=== PATIENT | male | born 1980 | race Caucasian/White ===

== ENCOUNTER 2021-06-17 11:30 | Emergency (ER) | payer BC, SELFPAY ==
--- NOTE | ~2021-06-17 | XR_ITS ---
XR knee RT 3V 06/17/2021 11:50 INDICATION: Right knee pain PROCEDURE: 3 views right knee COMPARISON: No prior studies for comparison. FINDINGS: Fracture, dislocation or subluxation is not identified. The soft tissues appear within norm al limits. No foreign bodies are identified. IMPRESSION: 1: NO ACUTE BONE OR JOINT ABNORMALITY IDENTIFIED. Reviewed, dictated and finalized at location A. R BUILDER
--- NOTE | 2021-06-17 11:44 | ED.LOWEXIN ---
HPI - Extremity Injury (Lower) General Chief Complaint: Extremity Injury, Lower Stated Complaint: R knee pain Time Seen by Provider: 06/17/21 11:45 Source: patient Mode of arrival: ambulatory Limitations: no limitations History of Present Illness HPI Narrative: 40-year-old male presented for complaint of right lateral knee pain worsening over the past week. He states that the onset he was playing with his daughter he was seated and she fell on his knee. Unsure of the mechanism of injury otherwise. Continues to report pain, states it is getting worse. Pain is not relieved with rest. He is able to ambulate without an assistive device. He has taken ibuprofen, used pain cream and heating pad with minimal relief. Denies numbness, tingling, weakness of the lower extremity. He states he is scheduled with his primary care provider tomorrow for evaluation. Related Data Allergies Allergy/AdvReac Type Severity Reaction Status Date / Time No Known Allergies Allergy Verified 06/17/21 11:41 Review of Systems Review of Systems: CONSTITUTIONAL: Denies , fever, chills EYES: Denies visual changes ENT: Denies rhinorrhea, congestion CARDIOVASCULAR: Denies chest pain, palpitations, or edema. RESPIRATORY: Denies cough or dyspnea. GASTROINTESTINAL: Denies abdominal pain, nausea, vomiting, or diarrhea. SKIN: Denies rash, itching, or wounds. MUSCULOSKELETAL: Endorses right lateral knee pain NEUROLOGIC: Denies headache, numbness, tingling, or weakness. PSYCH: Denies depression or anxiety. All systems reviewed & are unremarkable except as noted in HPI and below PMFSH Comments At time of signature, I have reviewed and agree with nursing past medical, surgical, social and family history unless otherwise noted. Please see nursing chart for further information. There is no relevant family history pertinent to the presenting complaint Exam Narrative: GENERAL: Well-appearing, well-nourished, and in no acute distress. HEAD: Normocephalic, atraumatic. EYES: PERRLA, conjunctivae clear NECK: Supple. CHEST: Speaks in full sentences. No respiratory distress. HEART: Regular rate and rhythm. Normal and equal peripheral pulses. EXTREMITIES: Right lateral knee with full range of motion, tender with light palpation to the lateral/distal knee, patient is able to flex and extend difficulty, endorses increased pain with medial rotation. No apparent edema or ecchymosis. No open wounds, no skin tenting, no devitalized tissue or atrophy, no trophic changes, no obvious deformity; alignment normal, nearby joints and structures intact. Distal pulses palpable and equal bilaterally, skin warm, dry, pink. Capillary refill less than 3 seconds. SKIN: Warm, dry, no rash. NEURO: Alert and oriented x3. PSYCH: Normal mood and affect Course Course Emergency Course: xray unremarkable Patient is aware of diagnosis, understands and agrees to treatment plan. Anticipatory guidance given. Patient agrees to follow-up as directed and is aware of reasons to seek care at the emergency department. Portions of this record may have been created with voice recognition software Level of Care: Express Care Visit Vital Signs Vital signs: Vital Signs Temperature 98.6 F 06/17/21 11:50 Pulse Rate 94 06/17/21 11:50 Respiratory Rate 16 06/17/21 11:50 Blood Pressure 178/101 H 06/17/21 11:50 Pulse Oximetry 99 06/17/21 11:50 Temperature 98.6 F 06/17/21 11:50 Pulse Rate 94 06/17/21 11:50 Respiratory Rate 16 06/17/21 11:50 Blood Pressure 178/101 H 06/17/21 11:50 Pulse Oximetry 99 06/17/21 11:50 Reviewed MDM - Extremity Injury (Lower) MDM Narrative Medical decision making narrative: Patellar dislocation, patella fracture, quadricep tendon rupture, gout, patellar tendinitis, bursitis, Ang's cyst, DVT Imaging Data Attestation: I personally reviewed and interpreted this imaging study as follows: My impression: NO ACUTE BONE OR JOINT ABNORMALITY IDENTIFIED.
[2021-06-17 11:50] VITALS: BP 178/101; PULSE 94; RESP 16; TEMP 37; O2SAT 99
== END 2021-06-17 12:41 | disposition home or self-care (01) ==
PROVIDERS: Emergency Provider Nurse Practitioner Family; PCP Nurse Practitioner Family
DX: M25.561 Pain in right knee (principal)
CPT/HCPCS: 73562; 99213; G0463

== ENCOUNTER 2022-07-01 15:37 | Observation (INO) | payer OTHER, MEDICAID, SELFPAY ==
--- NOTE | ~2022-07-01 | CT_ITS ---
EXAMINATION: CT abdomen pelvis wo con DATE: 07/01/2022 18:33 INDICATION: Left flank pain. TECHNIQUE: Computed tomography (CT) of the abdomen and pelvis was performed without intravenous contr ast. Automated exposure control and iterative reconstruction technique were employed. The dose-length product was 1482.56 mGy-cm. COMPARISON: None. FINDINGS: The visualized portions of the lung bases demonstrated mild atelectasis. No pleural effusio n. The heart size is normal. No pericardial effusion. There is diffuse hepatic steatosis. There is a gallstone in the gallbladder, which is normal in size. The spleen, pancreas, adrenal glands, and righ t kidney are normal. There is mild left hydronephrosis and hydroureter to the level of a 4 mm stone i n distal left ureter. There is diverticulosis of the colon without evidence of diverticulitis. The ap pendix is normal. There are no pathologically enlarged lymph nodes. There is an umbilical hernia cont aining fat. There is no free intraperitoneal fluid. There is mild thoracic and lumbar spondylosis. IMPRESSION: 1. 4 mm stone in distal left ureter with mild left hydronephrosis and hydroureter. Reviewed, dictated and finalized at location A. MATION QTP TESTER IMPRESSION: 1. 4 mm stone in distal left ureter with mild left hydronephrosis and hydrouret er.
--- NOTE | ~2022-07-01 | XR_ITS ---
EXAMINATION: XR abdomen/kub 1V DATE: 07/01/2022 19:48 INDICATION: Nephrolithiasis. TECHNIQUE: A supine view of the abdomen on 2 radiographs was obtained. COMPARISON: CT abdomen and pelvis 07/01/22 FINDINGS: There are no dilated loops of bowel. There is a 4 mm stone in distal left ureter overlying the sacrum. IMPRESSION: 1. 4 mm stone in distal left ureter. Reviewed, dictated and finalized at location A. LL ASSEMBLER
--- NOTE | ~2022-07-01 | XR_ITS ---
EXAMINATION: XR retrograde pyelo w/stent LT DATE: 07/02/2022 08:49 INDICATION: Left internal ureteral stent placement TECHNIQUE: Fluoroscopic images from a left stent placement are submitted for review. 21 seconds of fl uoroscopy time. FINDINGS: There is a left double-J internal ureteral stent projecting in expected position, with proximal [place] loop at the level of the renal pelvis and distal loop in the pelvis within the bladder lumen. IMPRESSION: 1. Left internal ureteral stent placement. Please refer to real-time procedural findings for detail s. Reviewed, dictated and finalized at location L. ORCHARDIST IMPRESSION: 1. Left internal ureteral stent placement. Please refer to real-time procedur al findings for details.
[2022-07-01 16:28] VITALS: BP 174/111; PULSE 92; RESP 16; TEMP 36.8; O2SAT 99
[2022-07-01 16:44] LABS: Basophils Absolute Auto 0.1 K/mm3 (0.0-0.1); Basophils Percent Auto 0.4 % (0.2-1.2); Eosinophils Absolute Auto 0.1 K/mm3 (0-0.3); Eosinophils Percent Auto 0.8 % (0-4.4); Hematocrit 46.4 % (42.0-52.0); Hemoglobin 16.4 g/dL (14.0-18.0); Immature Granulocyte Absolute 0.06 K/mm3 (0.00-0.031); Immature Granulocyte Percent A 0.4 % (0-0.5); Lymphocytes Percent Auto 19.4 % (18.3-44.2); Mean Corpuscular HGB Conc 35.3 g/dl (32-36); Mean Corpuscular Volume 84.8 fl (80-100); Mean Platelet Volume 8.3 fl (7.4-10.4); Monocytes Absolute Auto 1.2 K/mm3 (0.1-0.6); Monocytes Percent Auto 7.8 % (2.6-8.5); Neutrophils Percent Auto 71.2 % (45.5-73.1); Platelet Count Result 333 k/mm3 (150-375); Red Blood Count 5.47 M/mm3 (4.6-6.20); Red Cell Distribution Width 13.6 % (11.5-14.5); White Blood Count 15.4 K/mm3 (4.5-10.0)
[2022-07-01 17:02] LABS: Alanine Aminotransferase 59 U/L (6-50); Albumin Level 4.3 g/dL (3.5-5.1); Alkaline Phosphatase 91 U/L (38-126); Anion Gap 7 mmol/L (8-16); Aspartate Amino Transferase 45 U/L (17-59); Bilirubin,Total 0.9 mg/dL (0.2-1.3); Blood Urea Nitrogen 12 mg/dL (9-20); Carbon Dioxide 28 mmol/L (22-30); Chloride 104 mmol/L (98-107); Estimated Glomerular Filt Rate > 60; Glucose 135 mg/dL (65-110); Potassium 3.6 mmol/L (3.4-5.0); Sodium 139 mmol/L (137-145)
[2022-07-01 17:24] LABS: Appearance Urine Slightly Cloudy (Clear); Bilirubin Urine 1+ (Negative); Blood Urine 3+ (Negative); Color Urine Yellow (Yellow); Glucose Urine UA Negative (Negative); Ketones Urine Trace mg/dL (Negative); Leukocyte Esterase Ur Negative LEU/UL (Negative); Nitrate Urine Negative (Negative); Protein Urine 2+ mg/dL (Negative); Specific Grav Ur >= 1.030 (1.001-1.035); Urobilinogen Urine 0.2 mg/dL (<2.0); pH Urine 5.5 (5.0-9.0)
[2022-07-01 17:30] LABS: Add Urine Microscopic? YES; Calcium Oxalate Crystals Urine Many /hpf; Mucus Urine Rare /lpf; RBC Urine >75 /hpf (0-2); WBC Urine 0-3 /hpf
[2022-07-01] MEDS: SODIUM CHLORIDE 0.9% IV 1,000 ML 999 ML IV CONT (18:40)
[2022-07-01] MEDS: ONDANSETRON INJ 4 MG/2 ML VIAL IV PUSH ×2 (18:40→19:39)
[2022-07-01] MEDS: MORPHINE SULFATE (*CRX) 4 MG/ML INJ IV PUSH ×2 (18:41→22:48)
--- NOTE | 2022-07-01 19:13 | ED.ABDPAIN ---
HPI - Abdominal Pain General Chief Complaint: Abdominal Pain Stated Complaint: kidney stone, pain, nausea, blood in urine Time Seen by Provider: 07/01/22 18:58 History of Present Illness HPI narrative: 41-year-old male with a history of nephrolithiasis multiple times reports for left flank pain and hematuria for 1 month, worsening over the past 2 days. Patient reports constant nausea and multiple episodes of vomiting, 4-5 times per day for the past 2 days. He states this is exactly how he feels when he gets kidney stones. He sees Dr. Manuel for urology and [place]. States when he gets kidney stones are usually 6 to 8 mm in size and he usually has to get a stent placed to pass them. Denies fever, body aches, chills, abdominal pain, dysuria. He reports urinary urgency, but states every time he tries to go there is only a few drops. Related Data Home Medications Medication Instructions Recorded Confirmed cholecalciferol (vitamin D3) 25 25 mcg PO DAILY 09/12/21 mcg (1,000 unit) capsule lisinopril 40 mg tablet 40 mg PO DAILY 09/12/21 tadalafil 5 mg tablet 5 mg PO DAILY 09/12/21 Allergies Allergy/AdvReac Type Severity Reaction Status Date / Time amoxicillin Allergy Unknown Unknown Verified 07/01/22 18:56 Review of Systems Review of Systems: CONSTITUTIONAL: Denies fever, chills EYES: Denies visual changes, redness, or discharge. ENT: Denies rhinorrhea, congestion, sore throat, or otalgia. CARDIOVASCULAR: Denies chest pain, palpitations, or edema. RESPIRATORY: Denies cough or dyspnea. GASTROINTESTINAL: See HPI GENITOURINARY: See HPI. SKIN: Denies rash or itching. MUSCULOSKELETAL: Denies joint pain, or myalgia. NEUROLOGIC: Denies headache, numbness, dizziness, or weakness. PSYCHIATRIC: Denies anxiety or depression. [facility] Social History Social History Smoking status: Current every day smoker Tobacco type: cigarettes Alcohol intake: never Substance use: never Exam Narrative: GENERAL: Well-appearing, well-nourished, and in no acute distress. HEAD: Normocephalic, atraumatic. EYES: PERRLA and EOMI. ENT: Nares clear, no rhinorrhea or epistaxis. Mucous membranes moist. Oropharynx without tonsillar hypertrophy exudate or other lesions. NECK: Supple. No adenopathy or masses. CHEST: Clear to auscultation. No respiratory distress. No wheezes rales or rhonchi HEART: Regular rate and rhythm. No murmur heard. Normal peripheral pulses. ABDOMEN: Soft, nontender, nondistended, normal active bowel sounds. No CVA tenderness. EXTREMITIES: Normal range of motion. No edema. SKIN: Warm, dry, no rash. NEURO: No focal deficits. Alert and oriented x3. PSYCH: Normal mood and affect. Course Course Emergency Course: 1914: Patient vomited in the ED after receiving 4 mg of morphine about 30 minutes ago Spoke with Dr. Gibbons who is agreeable to admission and will plan to consult the patient in the morning. Advised me to obtain a KUB and give toradol for pain Vital Signs Vital signs: Vital Signs Temperature 98.3 F 07/01/22 16:28 Pulse Rate 92 07/01/22 16:28 Respiratory Rate 16 07/01/22 16:28 Blood Pressure 174/111 H 07/01/22 16:28 Pulse Oximetry 99 07/01/22 16:28 Oxygen Delivery Room Air 07/01/22 16:28 Temperature 98.3 F 07/01/22 16:28 Pulse Rate 92 07/01/22 16:28 Respiratory Rate 16 07/01/22 16:28 Blood Pressure 174/111 H 07/01/22 16:28 Pulse Oximetry 99 07/01/22 16:28 Oxygen Delivery Room Air 07/01/22 16:28 MDM - Abdominal Pain MDM Narrative Medical decision making narrative: 41-year-old male with a history of multiple kidney stones reports to the ED today with left flank pain, nausea, vomiting, urinary urgency with little output. Patient is followed by urologist Dr. Manuel and [place] who has performed multiple stents for this patient's kidney stones. Patient reports his stones usually measure betw
[2022-07-01] MEDS: KETOROLAC 30 MG/ML VIAL (*BKC) IV PUSH (19:40)
--- NOTE | 2022-07-01 20:15 | PM.IMHP ---
H&P: HPI History of Present Illness Date/Time: 07/01/22 20:15 Chief Complaint: Left flank pain. Narrative: This is a 41-year-old male smoker with history of kidney stones and hypertension who presented to the emergency department from home for evaluation of left flank pain. Patient provides the following history. He reports intermittent episodes of hematuria and left flank pain for upwards of a month though symptoms have been worse over the past 2 days. He describes a sharp and shooting colicky pain in the left flank radiating somewhat to the left lower quadrant. Associated symptoms include nausea and vomiting for the past 24 hours or so. He has been taking 2 Aleve a day without a whole lot of benefit recently. He denies fever, chills, and sweats. He was afebrile on arrival to the emergency department. CT showed a 4 mm stone in the distal left ureter with mild left hydronephrosis and hydroureter. Labs were significant for a WBC of 15.4 and creatinine 1.10. Urine had 3+ blood. Patient reports that he has never been able to pass a kidney stone on his own and he is being admitted in this setting for pain control and urology consultation. Review of Systems Review of Systems: Twelve systems were reviewed. No recent cold or flu symptoms. No sick contacts. He has had issues with intermittent diarrhea and constipation. He has occasional epigastric discomfort and belching. Patient notes that he typically takes 2 Aleve a day and has done so for years. He has no history of esophagitis, gastritis, or ulcer. No melena or hematochezia. Except as documented, all other systems were reviewed and are negative. [facility] Past Medical History Medical History (Updated 07/01/22 @ 23:30 by Qiana Kaur PA-C) Hypertension Kidney stones Tobacco dependence Surgical History Surgical History (Updated 07/01/22 @ 23:28 by Qiana Kaur PA-C) History of cystoscopy History of ureter stent History of vasectomy Family History Family History (Updated 07/01/22 @ 23:28 by Qiana Kaur PA-C) Other Hypertension Social History Social History (Updated 07/01/22 @ 23:28 by Qiana Kaur PA-C) Social History: Surrogate medical decision maker: Nemo Spence, mother. Code status: Full code. 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 Substance use: never Substance use type: does not use Lack of Transportation: No Lack of Food: Never True Current Housing: I Have Housing Concerned About Future Housing: No Difficulty Paying Gas/Electric Bills: No Difficulty Paying for Meds: No Currently Unemployed: No Education: Associate Degree Difficulty w/ Childcare or Family Care: No Spiritual care concerns: No Meds Home Medications and Allergies Home Medications Medication Instructions Recorded Confirmed Type ibuprofen 800 mg tablet 800 mg PO TID PRN pain #15 tabs 06/17/21 07/01/22 Rx cholecalciferol (vitamin D3) 25 25 mcg PO WEEKLY 09/12/21 07/01/22 History mcg (1,000 unit) capsule lisinopril 40 mg tablet 40 mg PO DAILY 09/12/21 07/01/22 History Allergies Allergy/AdvReac Type Severity Reaction Status Date / Time amoxicillin Allergy Unknown Unknown Verified 07/01/22 18:56 Vital Signs Vital Signs - 24 hr 07/01/22 16:28 Temperature 98.3 F Pulse Rate 92 Respiratory Rate 16 Blood Pressure 174/111 H Pulse Oximetry 99 Oxygen Delivery Room Air Exam Narrative: General: Mildly ill-appearing male in the semi-Torrez position in bed. Weight: 122 kg. BMI: 39.7. HEENT: PERRL, EOMI. Sclera anicteric. Tacky mucous membranes. Neck: Supple. Respiratory: Lungs are clear to auscultation bilaterally. Cardiovascular: Regular rate an
[2022-07-01 22:12] VITALS: BP 160/98; PULSE 89; RESP 17; O2SAT 98
[2022-07-01 22:25] VITALS: BP 172/108; PULSE 90; RESP 18; TEMP 36.8; O2SAT 97
[2022-07-01 23:00] VITALS: BMI 39.6
[2022-07-02] VITALS (10 sets, daily range): BP systolic 103–155; BP diastolic 64–97; PULSE 61–82; RESP 10–20; TEMP 35.9–36.7; O2SAT 95–100
[2022-07-02] MEDS: NICOTINE (*PBKC) 21 MG PATCH 1 PATCH TRANSDERM (00:24)
[2022-07-02] MEDS: SODIUM CHLORIDE 0.9% IV 1,000 ML 125 ML IV CONT ×2 (00:24→11:00)
[2022-07-02] MEDS: lisinopriL 20 MG TABLET PO (00:25)
[2022-07-02] MEDS: TAMSULOSIN HCL 0.4 MG CAPSULE PO (00:25)
[2022-07-02] MEDS: KETOROLAC 30 MG/ML VIAL (*BKC) IV PUSH (05:00)
[2022-07-02] MEDS: MORPHINE SULFATE (*CRX) 4 MG/ML INJ IV PUSH (06:09)
[2022-07-02 06:40] LABS: Hematocrit 41.8 % (42.0-52.0); Hemoglobin 14.5 g/dL (14.0-18.0); Mean Corpuscular HGB Conc 34.7 g/dl (32-36); Mean Corpuscular Hemoglobin 29.8 pg (26-34); Mean Corpuscular Volume 85.8 fl (80-100); Mean Platelet Volume 8.3 fl (7.4-10.4); Platelet Count Result 282 k/mm3 (150-375); Red Blood Count 4.87 M/mm3 (4.6-6.20); Red Cell Distribution Width 13.7 % (11.5-14.5); White Blood Count 12.1 K/mm3 (4.5-10.0)
[2022-07-02 06:55] LABS: Anion Gap 6 mmol/L (8-16); Blood Urea Nitrogen 15 mg/dL (9-20); Calcium 8.2 mg/dL (8.4-10.2); Carbon Dioxide 27 mmol/L (22-30); Chloride 107 mmol/L (98-107); Estimated CRCL calculation 113 ml/min; Estimated Glomerular Filt Rate > 60; Glucose 102 mg/dL (65-110); Magnesium 1.8 mg/dL (1.6-2.3); Potassium 3.5 mmol/L (3.4-5.0); Sodium 140 mmol/L (137-145)
[2022-07-02] MEDS: LACTATED RINGERS 1,000 ML 30 ML IV CONT (07:45)
--- NOTE | 2022-07-02 07:59 | WPDURCON ---
Assessment and Plan Assessment and plan (1) Left ureteral stone: Code(s): N20.1 - Calculus of ureter Status: Acute Assessment and Plan: Proceed with cystoscopy, left retrograde pyelogram, left ureteroscopy with stone extraction, possible laser, stent placement Urology Consult Note HPI Date Seen: 07/02/22 Requesting Physician: Steph James PA-C Primary Care Provider: REVENUE RESEARCH ANALYST PHYSICIAN Consult Narrative Reason for consult: Obstructing left distal ureteral calculus with colic Narrative: Néstor Spence is a 41 year old male who was admitted with an obstructing 4 mm distal stone. Pain was difficult to be controlled. Patient does have a history of stones requiring intervention in the past. Patient denies any fevers. Urinalysis has no evidence of leukocytes or nitrates at this time. Review of Systems Review of Systems: All systems reviewed & are unremarkable except as noted in HPI and below PMFSH Past Medical History Medical History Hypertension Kidney stones Tobacco dependence Surgical History Surgical History History of cystoscopy History of ureter stent History of vasectomy Family History Family History Other Hypertension Social History Social History Social History: Surrogate medical decision maker: Nemo Spence, mother. Code status: Full code. 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 Substance use: never Substance use type: does not use Lack of Transportation: No Lack of Food: Never True Current Housing: I Have Housing Concerned About Future Housing: No Difficulty Paying Gas/Electric Bills: No Difficulty Paying for Meds: No Currently Unemployed: No Education: Associate Degree Difficulty w/ Childcare or Family Care: No Spiritual care concerns: No Meds Home Medications and Allergies Home Medications Medication Instructions Recorded Confirmed Type ibuprofen 800 mg tablet 800 mg PO TID PRN pain #15 tabs 06/17/21 07/01/22 Rx cholecalciferol (vitamin D3) 25 25 mcg PO WEEKLY 09/12/21 07/01/22 History mcg (1,000 unit) capsule lisinopril 40 mg tablet 40 mg PO DAILY 09/12/21 07/01/22 History Allergies Allergy/AdvReac Type Severity Reaction Status Date / Time amoxicillin Allergy Unknown Unknown Verified 07/01/22 18:56 Vital Signs Vital Signs - 24 hr 07/01/22 16:28 07/01/22 22:12 07/01/22 22:25 Temperature 36.8 C 36.8 C Pulse Rate 92 89 90 Respiratory Rate 16 17 18 Blood Pressure 174/111 H 160/98 H 172/108 H Pulse Oximetry 99 98 97 Oxygen Delivery Room Air 07/02/22 06:00 Temperature 36.0 C L Pulse Rate 78 Respiratory Rate 18 Blood Pressure 142/97 H Pulse Oximetry 97 Oxygen Delivery Exam Const: General: cooperative Resp: Effort & Inspection: normal respiratory effort Cardio: Rate: regular rate Rhythm: regular rhythm GI: Inspection: normal to inspection GI Palp: Yes Soft to palpation Results Labs 07/02/22 06:31 07/02/22 06:32 Labs: Short CBC 07/01/22 07/02/22 Range/Units 16:36 06:31 WBC 15.4 H 12.1 H (4.5-10.0) K/mm3 Hgb 16.4 14.5 (14.0-18.0) g/dL Hct 46.4 41.8 L (42.0-52.0) % Plt Count 333 282 (150-375) k/mm3 [facility] 07/01/22 07/02/22 16:36 06:32 Sodium 139 140 Potassium 3.6 3.5 Chloride 104 107 Carbon Dioxide 28 27 BUN 12 15 Creatinine 1.10 1.00 Glucose 135 H 102 Calcium 9.0 8.2 L Liver Function 07/01/22 R
--- NOTE | 2022-07-02 08:01 | WPDHPUPDATE1 ---
History and Physical Update Update Date/Time: 07/02/22 08:01 History and Physical has been reviewed, including an updated exam of the patient. There are NO changes in the patient's condition. Risks, benefits, and alternatives have been discussed and questions answered. Patient agrees to proceed with procedure.
--- NOTE | 2022-07-02 08:06 | WPDANESEPPF ---
Anes - Initial Pre Proc Eval Procedure: Operation Date: 07/02/22 09:30 Proposed Procedures p Cystoscopy,Left Ureteroscopy,Left Retrograde Pyelogram,Left Stone Extraction,Possible Holmium Laser,Possible Stent Placement - Vijay Gibbons MD Date/Time: 07/02/22 08:06 Surgeon: Steph James PA-C Pre Op Diagnosis: nephtolithiasis Patient Data Age: 41 Gender: M Height: 1.75 m Weight: 122.2 kg Last Vital Signs Temp 36.0 C L 07/02/22 06:00 Pulse 78 07/02/22 06:00 Resp 18 07/02/22 06:00 BP 142/97 H 07/02/22 06:00 Pulse Ox 97 07/02/22 06:00 O2 Del Method Room Air 07/01/22 16:28 Allergies Allergy/AdvReac Type Severity Reaction Status Date / Time amoxicillin Allergy Unknown Unknown Verified 07/01/22 18:56 Home Medications Medication Instructions Recorded Confirmed Type ibuprofen 800 mg tablet 800 mg PO TID PRN pain #15 tabs 06/17/21 07/01/22 Rx cholecalciferol (vitamin D3) 25 25 mcg PO WEEKLY 09/12/21 07/01/22 History mcg (1,000 unit) capsule lisinopril 40 mg tablet 40 mg PO DAILY 09/12/21 07/01/22 History Laboratory Tests 07/01/22 07/01/22 07/01/22 16:36 16:36 16:49 WBC 15.4 K/mm3 H K/mm3 (4.5-10.0) RBC 5.47 M/mm3 M/mm3 (4.6-6.20) Hgb 16.4 g/dL g/dL (14.0-18.0) Hct 46.4 % % (42.0-52.0) MCV 84.8 fl fl (80-100) MCH 30.0 pg pg (26-34) MCHC 35.3 g/dl g/dl (32-36) RDW 13.6 % % (11.5-14.5) Plt Count 333 k/mm3 k/mm3 (150-375) MPV 8.3 fl fl (7.4-10.4) Immature Gran % (Auto) 0.4 % % (0-0.5) Neut % (Auto) 71.2 % % (45.5-73.1) Lymph % (Auto) 19.4 % % (18.3-44.2) [place] % (Auto) 7.8 % % (2.6-8.5) Eos % (Auto) 0.8 % % (0-4.4) Baso % (Auto) 0.4 % % (0.2-1.2) Lymph # (Auto) 3.00 K/mm3 K/mm3 (0.9-3.2) [place] # (Auto) 1.2 K/mm3 H K/mm3 (0.1-0.6) Eos # (Auto) 0.1 K/mm3 K/mm3 (0-0.3) Baso # (Auto) 0.1 K/mm3 K/mm3 (0.0-0.1) Abs Immat Gran (auto) 0.06 K/mm3 H K/mm3 (0.00-0.031) Absolute Neuts (auto) 11.0 K/mm3 H K/mm3 (1.3-6.7) Absolute Nucleated RBC 0.0 K/mm3 K/mm3 (0.0-0.012) Nucleated RBC % 0.0 % % (0.0-0.2) Sodium 139 mmol/L mmol/L (137-145) Potassium 3.6 mmol/L mmol/L (3.4-5.0) Chloride 104 mmol/L mmol/L (98-107) Carbon Dioxide 28 mmol/L mmol/L (22-30) Anion Gap 7 mmol/L L mmol/L (8-16) BUN 12 mg/dL mg/dL (9-20) Creatinine 1.10 mg/dL mg/dL (0.7-1.3) Estim Creat Clear Calc Not Reportable Estimated GFR > 60 (59 - ) Glucose 135 mg/dL H mg/dL (65-110) Calcium 9.0 mg/dL mg/dL (8.4-10.2) Magnesium Total Bilirubin 0.9 mg/dL mg/dL (0.2-1.3) AST 45 U/L U/L (17-59) ALT 59 U/L H U/L (6-50) Alkaline Phosphatase 91 U/L U/L (38-126) Total Protein 7.0 g/dL g/dL (6.3-8.2) Albumin 4.3 g/dL g/dL (3.5-5.1) Urine Color Yellow (Yellow) Urine Appearance Slightly cloudy (Clear) Urine pH 5.5 (5.0-9.0) Ur Specific [place] >= 1.030 (1.001-1.035) Urine Protein 2+ mg/dL H mg/dL (Negative) Urine Glucose (UA) Negative mg/dL mg/dL (Negative) Urine Ketones Trace mg/dL mg/dL (Negative) Ur Blood (Man) 3+ H (Negative) Urine Nitrate Negative (Negative) Urine Bilirubin 1+ H (Negative) Urine Urobilinogen 0.2 mg/dL mg/dL (<2.0) Leukocyte Esterase Rfl Negative YOSELIN/UL YOSELIN/UL (Negative) Urine RBC >75 /hpf H /hpf (0-2) Urine WBC 0-3 /hpf /hpf Calcium Oxalate Crystal Many /hpf /hpf (None) Urine Mucus Rare /lpf /lpf 07/02/22 07/02/22 06:
[2022-07-02] MEDS: ceFAZolin 3 GM/D5W 100 ML 100 ML IVPB (08:30)
[2022-07-02] MEDS: LIDOCAINE HCL 2% GEL UROJET 10 ML PKG MUCOUS MEM (08:42)
--- NOTE | 2022-07-02 08:46 | W.PM.PROC2 ---
Procedure Note - Detailed Date of Procedure 07/02/22 Pre-op Diagnosis Left ureteral calculus Post-op Diagnosis Same Procedure Performed Cysto, left retrograde pyelogram, left ureteroscopy with stone extraction, left ureteral stent placement 4.8 Indonesian contour Surgeon Vijay Gibbons MD Anesthesia General Description of Procedure Patient is taken the operative suite correctly identified. Once anesthesia was obtained was placed in dorsal lithotomy position and prepped and draped usual sterile fashion. Twenty-two Indonesian scope was inserted the bladder. There were no tumors noted. Left ureteral orifice was cannulated with a guidewire. We dilated with an 8/10 dilator. Rigid ureteral scope was inserted the stone was visualized. Using an escape basket was retrieved in its entirety and sent for analysis. Reinspection of the ureter revealed no residual stones. Pyelogram was then performed to confirm placement the stent. No filling defects noted. 4.8 Indonesian contour stent was then placed with the proximal end coiled in the renal pelvis and the distal in the bladder. 2% viscous lidocaine was inserted urethra patient is taken recovery stable condition. He will follow-up in a week's time for stent removal. Please send a copy of this report to my office. Estimated Blood Loss 0 Drains No Packing No Pathology Yes Complications No immediate complications Condition Stable Disposition PACU
[2022-07-02] MEDS: lisinopriL 20 MG TABLET 40 MG PO (10:41)
--- NOTE | 2022-07-02 12:40 | PC.NURSE ---
Pt is A&O4 male who went for a cystoscopy this morning. Pt tolerated well and has had no complaints of pain since arriving to the floor. Pt stated that he is feeling much better than prior to the surgery. Pt was placed on a regular diet and has tolerated well. Pt is resting now. Will continue to monitor pt.
--- NOTE | 2022-07-02 13:13 | PM.DS ---
DS: Admitting Diagnosis Discharge Date 07/02/2022 Admitting Diagnosis Left ureteral stone DS: Discharge Diagnosis Discharge Diagnosis (1) Left ureteral stone: Code(s): N20.1 - Calculus of ureter Status: Acute Assessment and Plan: Presented with left flank pain and hematuria. CT showed 4 mm stone in distal left ureter with mild left hydronephrosis and hydroureter. Patient seen in consultation by Urology. Underwent cystoscopy with left ureteroscopy and stone extraction and left stent placement on 07/02/2022. Tolerated the procedure well. Patient will continue p.o. Bactrim for 3 days per Urology recommendations. UA not concerning for infection, however urine culture pending at time of discharge. Results will be monitored. Outpatient urology follow-up in 1 week for stent removal. (2) Hydroureteronephrosis: Code(s): N13.30 - Unspecified hydronephrosis Status: Acute Assessment and Plan: As above (3) Hypertension: Code(s): I10 - Essential (primary) hypertension Status: Acute Assessment and Plan: Blood pressures remain generally stable during admission. Continue home lisinopril (4) Tobacco dependence: Code(s): F17.200 - Nicotine dependence, unspecified, uncomplicated Status: Acute Assessment and Plan: Patient smokes pack per day. Reports he has successfully quit smoking in the past but recently picked it back up. Discussed smoking cessation for 5 minutes inpatient is motivated to quit. Nicotine patch provided during admission. DS: Summary Hospital Course Hospital Course: Date of admission: 07/01/2022 Date of discharge: 07/02/2022 Néstor Spence is a 41-year-old male with history of hypertension, tobacco dependence, and previous kidney stones who presented to the emergency department on 07/01/2022 also with complaints of left flank pain and hematuria ongoing for 1 month, worsened over the past 1-2 days. On presentation to the ED, his blood pressure was elevated with additional vital signs stable, WBC 15.4, additional laboratory workup unremarkable, UA with 3+ blood negative, nitrates, negative leuk esterase, CT of abdomen/pelvis revealed 4 mm stone in the distal left ureter with mild left hydronephrosis and hydroureter. Use the hospitalist service for further evaluation management and was seen in consultation by Urology. See above. The patient underwent stone extraction stent placement will follow-up with urology in 1 week. His pain was well controlled. He felt comfortable with plans for discharge home. Discussed worrisome signs and symptoms for which to return and he was educated on his medications. Discharged in hemodynamically stable condition on 07/02/2022. Time spent discussing smoking cessation with patient: 3 to 10 minutes Status at Discharge Functional status at discharge: independent ambulation Overall status at discharge: patient is back to baseline Time Spent with Patient Time attestation: Total time spent providing and/or coordinating discharge services: 45 minutes Time spent: Greater than 30 minutes Exam Narrative: General: Obese, well-appearing 41-year-old male, sitting up in bed, comfortable, NARD Neuro: awake, alert and oriented x4, speech clear, no focal neuro deficits noted HEENMT: normocephalic, atraumatic, EOMI, sclerae anicteric, moist oral mucosa Respiratory: clear to auscultation bilaterally, nonlabored breathing Cardio: regular rate, regular rhythm with S1-S2 Abdomen: nondistended, normoactive bowel sounds, soft, nontender to palpation : No CVA tenderness Extremities: no edema, erythema, or tenderness to palpation Skin: no rashes or lesions, warm and dry Psych: appropriate mood and affect, judgment and insight intact DS: Data Data Completed and Pending Pending studies at discharge: Pending at discharge 07/02/22 08:39 Surgical [PTH] Routine Labs on day of discharge: Labs from last 24
--- NOTE | 2022-07-02 14:33 | PC.NURSE ---
Pt discharged home with family. Pt IV removed. Pt has all personal belongings.
--- NOTE | 2022-07-09 07:03 | PC.NURSE ---
Urine cx is negative.
== END 2022-07-02 14:20 | disposition home or self-care (01) ==
LOC: ANHED 20:00 → ANH3MEDSUR 23:12
PROVIDERS: Emergency Medicine; Physician Assistant; Urology; Admitting Provider Internal Medicine; Emergency Provider Physician Assistant; Visit Provider Physician Assistant
PROC: (CPT 52352; principal; 2022-07-02 09:30)
DX: N13.2 Hydronephrosis with renal and ureteral calculous obstruction (principal); D72.829 Elevated white blood cell count, unspecified; I10 Essential (primary) hypertension; E66.9 Obesity, unspecified; Z68.39 Body mass index [BMI] 39.0-39.9, adult; F17.210 Nicotine dependence, cigarettes, uncomplicated; Z87.442 Personal history of urinary calculi; Z79.1 Long term (current) use of non-steroidal anti-inflammatories (NSAID); Z79.899 Other long term (current) drug therapy
CPT/HCPCS: 52320; 52332; 36415; 74018; 74176; 74420; 80048; 80053; 81001; 82365; 83735; 85025; 85027; 87086; 88300; 96361; 96374; 96375; 96376; 99285; A9270; C1769; C2617; G0378; J0690; J1100; J1885; J2250; J2270; J2405; J2704; J3010; J7030; J7120